=== PATIENT | male | born 1995 | race Caucasian/White ===

== ENCOUNTER 2023-02-15 08:48 | Emergency (ER) | payer MEDICAID ==
[2023-02-15 09:08] VITALS: BP 122/81; O2SAT 100
--- NOTE | 2023-02-15 09:39 | ED Physician Documentation ---
PD HPI SKIN - Stated complaint Stated Complaint: LFT ARM INFECTION - Chief complaint Chief Complaint: Wound - History obtained from History obtained from: Patient - Additional information Additional information: The patient comes to the emergency department chief complaint of "I think I still have an infection around my tattoo". The patient states that about 4 weeks ago, he had extensive tattooing on his left arm and immediately afterward, developed some deep redness with blistering around the tattooed areas. The patient went to urgent care and was told he had an infection and was started on doxycycline, which the patient finished about a week and a half ago. He states that he is just noticed a persistent pink coloration of the skin immediately within and around the edges of the tattooed area. He states it still feels little sore and he is wondering if he still has an infection. He denies any drainage. No spreading of the erythema beyond the tattooed area. No fevers or chills. No other complaints at this time. PD PAST MEDICAL HISTORY - Past Surgical History Past Surgical History: Yes HEENT: Tonsil/Adenoidectomy - Present Medications Home Medications: Ambulatory Orders Medication Instructions Recorded Confirmed Tramadol HCl 50 - 100 mg PO Q6HR PRN #15 tablet 10/16/16 - Allergies Allergies/Adverse Reactions: Allergies Allergy/AdvReac Type Severity Reaction Status Date / Time No Known Drug Allergies Allergy Verified 02/15/23 09:01 - Social History Does the pt smoke?: No Smoking Status: Never smoker Does the pt drink ETOH?: No Does the pt have substance abuse?: No PD ED PE NORMAL - Vitals Vital signs reviewed: Yes - General General: Alert and oriented X 3, No acute distress, Well developed/nourished - HEENT HEENT: Atraumatic, Moist mucous membranes - Neck Neck: Supple, no meningeal sign - Cardiac Cardiac: Strong equal pulses - Respiratory Respiratory: No respiratory distress - Derm Derm: Warm and dry, No rash, Other (The patient has extensive tattooing on his left arm and there is slight pinkish discoloration of the skin between the ink markings. The slight erythema extends to the outermost edge of the tattooed area but does not go beyond. There is no induration or edema. No lesions.) - Extremities Extremities: No deformity, No edema - Neuro Neuro: Alert and oriented X 3, No motor deficit, No sensory deficit - Psych Psych: Normal mood, Normal affect Results - Vitals Vitals: Oxygen O2 Source Room air PD Medical Decision Making - ED course Complexity details: considered differential, d/w patient ED course: I discussed with the patient that his arm does not look infected and I do not think that the persistent, mild pinkish coloration represents Persistent cellulitis. Particularly, the patient finished antibiotics, which would have been appropriate for any skin pathogens, a week and a half ago, and has not had a major escalation in his symptoms. This would be unlikely for a partially treated, then not at all treated cellulitis. I actually, looking at the pictures of the deep erythema and blistering when the patient first got the tattoo, suspect a reaction to either the dye or some other chemical associated with the tattooing process. This seems to have caused an ongoing reaction, though it does appear that the reaction has diminished since it first began. At this point, I have advised the patient that I would not recommend antibiotics as I do not feel this represents infection. We have discussed that most likely, this will blow over on its own. We have discussed symptomatic management, as well as the usual indications for return. Departure - Departure Disposition: 01 Home, Self Care Clinical Impression: Agent affecting skin causing adverse effect Qualifiers: Encounter type: initial encounter Qualified Code(s): T49.95XA - Adverse effect of unspecified topical agent, initial encounter Condition: Stable Instructions: Post Injection Inflammation Comments: You have some very light redness to your skin that is confined to the immediate area of the tattoo itself. Given that you are already on an extended period of antibiotics with an appropriate antibiotic selection, and given that it has been over a week since she finished the antibiotic course, it is highly unlikely that this light redness represents infection. More likely, there is some component in the tattoo dye that is responsible for the ongoing irritation. In general, bacterial infections are expected to spread through the adjacent tissues, and the fact that this has not happened even after more than a week of having no antibiotics makes the likelihood of infection low. Ultimately, the irritation will calm down but you will need to give it some time. If you begin to notice deepening redness that is spreading away from just the immediate area around the tattoo, combined with swelling, especially of your hand or forearm, or with fevers and chills, you should get rechecked. Forms: PCP List Discharge Date/Time: 02/15/23 10:02
== END 2023-02-15 10:02 | disposition home or self-care (01) ==
LOC: ED 08:48 → MERGE 08:48 → ED 10:02
DX: T49.95XA Adverse effect of unspecified topical agent, initial encounter (principal)
CPT/HCPCS: 99281; 99282